=== PATIENT | female | born 1985 | race Caucasian/White ===

== ENCOUNTER 2017-05-22 17:15 | Emergency (ER) | payer OTHER ==
[2017-05-22 17:35] VITALS: TEMP 98.4; O2SAT 98
--- NOTE | 2017-05-22 20:45 | EDPHY ---
H & P Stated Complaint: R upper thigh to hip "throbbing";recent airtravel;no injury - Personal History LMP (Females 10-55): 8-14 Days Ago Current Tetanus Diphtheria and Acellular Pertussis (TDAP): Yes - Social History Smoking Status: Never smoked Time Seen by Provider: 05/22/17 20:32 HPI/ROS: CHIEF COMPLAINT: Right thigh pain x2 days HISTORY OF PRESENT ILLNESS: 31-year-old female, healthy, no vasculopathy history, return from a trip to [place] 5 days ago. 2 days ago started complaining of right anterolateral thigh pain, waxing waning. No incontinence no retention no saddle anesthesia. No trauma. No foot drop. No back pain. No fever or chills. PHYSICAL EXAM (Prior to examination, patient consented to physical exam, hands were washed and my usual and customary physical exam procedures followed) 1) GENERAL: Well-developed, well-nourished, alert and oriented. Appears to be in no acute distress. 2) HEAD: Normocephalic 3) HEENT: sclera anicteric 4) LUNGS: Breathing comfortably. 5) SKIN: Intact no discoloration no lesions no vesicles 6) MUSCULOSKELETAL: Bilateral lower extremities have patella and Achilles reflexes intact equal bilaterally. Compartments of the right lower extremity are soft. No tenderness to palpation. Range of motion of the right lower extremity elicits no pain including axial loading of the acetabulum, right knee which elicits no pain. Distal DP PT pulses present and brisk. Normal coloration, normal temperature, brisk capillary refill.. No foot drop. 7) back: No midline lumbar spine pain, step-off no effusion (Jamie,D Amena) Constitutional: Initial Vital Signs Temperature (C) 36.9 C 05/22/17 17:32 Heart Rate 64 05/22/17 17:32 Respiratory Rate 16 05/22/17 17:32 Blood Pressure 116/82 H 05/22/17 17:32 O2 Sat (%) 98 05/22/17 17:32 O2 Delivery Mode Room Air Allergies/Adverse Reactions: No Known Allergies Allergy (Unverified 05/22/17 17:32) Home Medications: Medication Instructions Recorded NK [No Known Home Meds] 05/22/17 Medical Decision Making - Diagnostics Imaging: Discussed imaging studies w/ blast furnace tender Radiologist - Diagnostics Imaging Results: Imaging Impressions Extremity Venous Study 05/22/17 20:41 Impression: No evidence of deep vein thrombosis in the right leg. I telephoned results to GEENA Anne, at 2130 hours. ED Course/Re-evaluation: 8:43 p.m.: Plan will be ultrasound of the right lower extremity. Patient has expressed concerns over possible DVT. She is neurovascular intact. Doubt compartment syndrome. Doubt cauda equina. Discussed possibility of lumbar radiculopathy. At this time however do not think that emergent MRI is indicated. Will obtain ultrasound and re-evaluate. Care of patient under supervision of secondary supervising physician Dr Cortes . 9:38 p.m.: Re-evaluation, discussed with her the negative ultrasound interpreted by staff radiologist at 9:30 p.m.. Re-examination, she is neurovascular intact, soft compartments, no tenderness on evaluation, no neurologic deficits.. Doubt arterial occlusion. At this time no indication for further emergent diagnostic studies. Given usual and customary discharge precautions instructions. She feels comfortable being discharged. (Annette Ayala) I did not see this patient while she was in the emergency department. However her care was discussed with the PA while the patient was in the department. I agree with treatment plan and management. I a.m. the secondary supervising physician (Gamaliel Cortes) Departure - Departure Disposition: Home, Routine, Self-Care Clinical Impression: Pain in right thigh Condition: Good Instructions: Musculoskeletal Pain (ED) Additional Instructions: Adult Pain & Fever Control: We recommend Acetaminophen (Tylenol) and Ibuprofen (Motrin,Advil) for pain and fever control. When fever is high or pain severe, both drugs can be used at the same time, but at different intervals. Please note the time differences. Your dose is: Acetaminophen 650mg every 4 to 6 hours Ibuprofen 600mg every 6 hours with food OR Note: do not take Acetaminophen with Hydrocodone (Vicodin, Lortab) or Oycodone (Percocet). These medications also contain Acetaminophen. No more than 3000mg of Acetaminophen should be taken in 24 hours (for an adult). Referrals: Quinton Sampson MD [Medical Doctor] - 1-2 days without fail
[2017-05-22 21:53] VITALS: BP 116/66; PULSE 58; RESP 18
== END 2017-05-22 21:53 | disposition home or self-care (01) ==
DX: M79.651 Pain in right thigh (principal)